=== PATIENT | male | born 1985 | race Two or more races ===

== ENCOUNTER 2018-07-30 21:48 | Emergency (ER) | payer MEDICARE ==
[~2018-07-30] VITALS: Ht 175.3 cm; Wt 84.5 kg
[~2018-07-30 21:48] MED LIST: AMI25T PO; CYCL-394 PO; HYDR-2514 PO; PROM25TA14 PO
[2018-07-30] MEDS ORDERED: ketorolac trometh. 30mg/ml inj. IV ONE (22:35)
[2018-07-30] MEDS ORDERED: magnesium 2GM in 50ml NS 50 ML IV ONE (22:35)
[2018-07-30] MEDS ORDERED: proCHLORperazine 10 MG/2 ml inj IV ONE (22:35)
[2018-07-30] MEDS ORDERED: normal saline 1000ml 1,000 ML IV ONE (22:35)
[2018-07-30] MEDS ORDERED: acetaminophen 325mg tablet PO ONE (22:35)
[2018-07-30] MEDS ORDERED: diphenhydrAMINE 50 mg/ml inj IV ONE (23:15)
[2018-07-30] MEDS ORDERED: LORazepam 2 mg/ml vial IV ONE (23:15)
[2018-07-31 00:26] VITALS: BP 120/61
== END 2018-07-31 00:29 | disposition home or self-care (01) ==
LOC: ER 21:48
DX: R51 Headache (principal); I10 Essential (primary) hypertension; F12.90 Cannabis use, unspecified, uncomplicated; Z56.0 Unemployment, unspecified; Z79.899 Other long term (current) drug therapy
CPT/HCPCS: 70450; 96365; 96375; 99284; J0780; J1200; J1885; J2060; J3475; J7030

== ENCOUNTER 2019-12-04 10:01 | Emergency (ER) | payer MEDICARE, MEDICAID ==
[~2019-12-04] VITALS: Ht 175.3 cm; Wt 87.7 kg
[2019-12-04 10:35] VITALS: BP 140/97
== END 2019-12-04 10:48 | disposition home or self-care (01) ==
LOC: ER 10:02
DX: I10 Essential (primary) hypertension (principal); R07.89 Other chest pain; F12.90 Cannabis use, unspecified, uncomplicated; Z72.89 Other problems related to lifestyle; Z56.0 Unemployment, unspecified; Z79.899 Other long term (current) drug therapy
CPT/HCPCS: 93005; 99283

== ENCOUNTER 2021-11-17 10:15 | Emergency (ER) | payer MEDICARE, MEDICAID ==
[~2021-11-17] VITALS: Ht 175.3 cm; Wt 81.0 kg
[2021-11-17 11:11] LABS: BASOPHILS # (AUTO) 0.1 X10'3 (0-0.2); EOSINOPHILS # (AUTO) 0.8 X10'3 (0-0.9); EOSINOPHILS % (AUTO) 7.4 % (0-6); HEMATOCRIT 48.2 % (42.0-52.0); HEMOGLOBIN 16.7 g/dl (14.0-17.9); LYMPHOCYTES # (AUTO) 2.1 X10'3 (1.1-4.8); LYMPHOCYTES % (AUTO) 18.7 % (21-51); MEAN CORPUSCULAR HEMOGLOBIN 32.2 PG (27.0-31.0); MEAN CORPUSCULAR HGB CONC 34.7 g/dL (33.0-36.5); MEAN CORPUSCULAR VOLUME 92.9 FL (78-98); MEAN PLATELET VOLUME 8.1 FL (7.4-10.4); MONOCYTES # (AUTO) 0.6 X10'3 (0-0.9); MONOCYTES % (AUTO) 5.5 % (2-12); NEUTROPHILS # (AUTO) 7.7 X10'3 (1.8-7.7); NEUTROPHILS % (AUTO) 67.4 % (42-75); PLATELET COUNT 190 X10'3 (140-440); RED BLOOD COUNT 5.19 X10'6 (4.70-6.10); RED CELL DISTRIBUTION WIDTH 12.9 % (11.5-14.5); WHITE BLOOD COUNT 11.4 X10'3 (4.5-11.0)
[2021-11-17 11:22] LABS: ALANINE AMINOTRANSFERASE 88 U/L (12-78); ALBUMIN 4.9 G/DL (3.4-5.0); ALBUMIN/GLOBULIN RATIO 1.4 (1.1-1.5); ALKALINE PHOSPHATASE 79 IU/L (46-116); ANION GAP 12 (8-16); ASPARTATE AMINO TRANSFERASE 51 U/L (10-37); BILIRUBIN,TOTAL 0.7 MG/DL (0.1-1.0); BLOOD UREA NITROGEN 26 MG/DL (7-18); BUN/CREATININE RATIO 20.5 (5.4-32.0); CALCIUM 9.8 MG/DL (8.5-10.1); CHLORIDE 101 MMOL/L (99-107); CREATININE 1.27 MG/DL (0.60-1.10); GLUCOSE 110 MG/DL (70-104); LIPASE 213 U/L (73-393); SODIUM 142 MMOL/L (135-145); TOTAL CARBON DIOXIDE 29.4 MMOL/L (24-32); TOTAL PROTEIN 8.4 G/DL (6.4-8.2); eGFR 64 ML/MIN
[2021-11-17] MEDS ORDERED: diazepam inj 5 MG/ML inj. IV ONE ×2 (12:10→12:50)
[2021-11-17] MEDS ORDERED: pantoprazole 40 MG vial IV ONE (12:10)
[2021-11-17] MEDS ORDERED: normal saline 1000ML IV soln IVB ONE (12:10)
[2021-11-17] MEDS ORDERED: ondansetron/PF 4mg/2ml inj IV ONE ×2 (12:10→16:10)
[2021-11-17] MEDS ORDERED: pantoprazole 40 MG/NS 100ML add-vantage BAG IV ONE (12:15)
[2021-11-17] MEDS ORDERED: proCHLORperazine 10 MG/2 ml inj IV ONE (12:50)
[2021-11-17] MEDS ORDERED: morphine 4 MG/ML inj SYRINge IV ONE ×2 (12:50→16:10)
--- NOTE | 2021-11-17 14:42 | NUR ---
NOTIFIED JAGRUTI MERRILL THAT PT STARTED VOMITING AGAIN.
[2021-11-17] MEDS ORDERED: diphenhydrAMINE 50 mg/ml inj IV ONE (14:45)
[2021-11-17] MEDS: metoclopramide 5 mg/ml inj IV ONE ×2 (15:07→15:11)
[2021-11-17] MEDS ORDERED: METO10TA3 PO (15:26)
[2021-11-17] MEDS ORDERED: ONDA4TAB12 PO (15:26)
[2021-11-17] MEDS ORDERED: HYDR-3972 PO (15:26)
[2021-11-17 17:09] VITALS: BP 154/91
== END 2021-11-17 18:44 | disposition home or self-care (01) ==
LOC: ER 10:15
DX: R11.2 Nausea with vomiting, unspecified (principal); K86.1 Other chronic pancreatitis; I10 Essential (primary) hypertension; F12.90 Cannabis use, unspecified, uncomplicated; Z56.0 Unemployment, unspecified
CPT/HCPCS: 36415; 71045; 80053; 80320; 83690; 85025; 96361; 96374; 96375; 96376; 99285; C9113; J0780; J1200; J2270; J2405; J2765; J3360; J7030

== ENCOUNTER 2021-11-21 20:48 | Emergency (ER) | payer MEDICARE, MEDICAID ==
[~2021-11-21] VITALS: Ht 175.3 cm; Wt 78.9 kg
[~2021-11-21 20:48] MED LIST changes: +HYDR-3972 PO; +METO10TA3 PO; +ONDA4TAB12 PO
[2021-11-21 20:53] VITALS: BP 200/122
== END 2021-11-21 23:07 | disposition left against medical advice (07) ==
LOC: ER 20:49
DX: R10.10 Upper abdominal pain, unspecified (principal); R11.10 Vomiting, unspecified; Z53.21 Procedure and treatment not carried out due to patient leaving prior to being seen by health care provider

== ENCOUNTER 2022-02-19 16:55 | Emergency (ER) | payer MEDICARE, MEDICAID ==
[~2022-02-19] VITALS: Ht 175.3 cm; Wt 81.8 kg
[~2022-02-19 16:55] MED LIST changes: -HYDR-3972 PO; -METO10TA3 PO
[2022-02-19] MEDS ORDERED: normal saline 1000ML IV soln IV ONE (17:20)
[2022-02-19] MEDS ORDERED: ondansetron/PF 4mg/2ml inj IV ONE (17:20)
[2022-02-19] MEDS: morphine 4 MG/ML inj SYRINge IV PRN ×2 (17:58→18:50)
[2022-02-19] MEDS ORDERED: ketorolac trometh. 30mg/ml inj. IV ONE (18:50)
[2022-02-19] MEDS ORDERED: metoclopramide 5 mg/ml inj IV ONE (18:50)
[2022-02-19] MEDS ORDERED: famotidine/PF 10 mg/ml inj IV ONE (18:50)
[2022-02-19] MEDS ORDERED: oxyCODONE/APAP 5-325mg tablet PO ONE (18:55)
[2022-02-19] MEDS ORDERED: ONDA4TAB12 PO (19:47)
[2022-02-19] MEDS ORDERED: OXYC-145 PO (19:47)
--- NOTE | 2022-02-19 20:07 | NUR ---
pt retching at this time after attempting to discharge and given oral pain meds, provider aware, pending further medication orders.
[2022-02-19] MEDS ORDERED: LORazepam 2 mg/ml vial IV ONE (20:10)
[2022-02-19] MEDS ORDERED: haloperidol lactate 5mg/ml inj IM ONE (20:10)
[2022-02-19 21:11] VITALS: BP 159/101
== END 2022-02-19 21:13 | disposition home or self-care (01) ==
LOC: ER 16:56
DX: K86.1 Other chronic pancreatitis (principal); R10.9 Unspecified abdominal pain; I10 Essential (primary) hypertension; F12.90 Cannabis use, unspecified, uncomplicated; Z56.0 Unemployment, unspecified
CPT/HCPCS: 36415; 74176; 83605; 84145; 87040; 96361; 96372; 96374; 96375; 96376; 99284; J1630; J1885; J2060; J2270; J2405; J2765; J3490; J7030

== ENCOUNTER 2022-02-21 08:33 | Emergency (ER) | payer MEDICARE, MEDICAID ==
[~2022-02-21] VITALS: Ht 175.3 cm; Wt 80.0 kg
[~2022-02-21 08:33] MED LIST changes: +OXYC-145 PO
--- NOTE | 2022-02-21 08:56 | NUR ---
lizbeth ragland saw pt in triage. moved to bed 17 until room in main er.
[2022-02-21] MEDS ORDERED: normal saline 1000ml 1,000 ML IV ONE ×2 (09:10→10:10)
[2022-02-21] MEDS ORDERED: ondansetron/PF 4mg/2ml inj IV ONE (09:10)
[2022-02-21] MEDS ORDERED: morphine 4 MG/ML inj SYRINge IV ONE (09:10)
[2022-02-21] MEDS ORDERED: haloperidol lactate 5mg/ml inj IM ONE (09:15)
[2022-02-21] MEDS ORDERED: diphenhydrAMINE 50 mg/ml inj IV ONE (09:15)
[2022-02-21] MEDS ORDERED: LORazepam 2 mg/ml vial IV ONE (09:15)
[2022-02-21 09:23] LABS: BASOPHILS # (AUTO) 0.1 X10'3 (0-0.2); BASOPHILS % (AUTO) 0.5 % (0-1); EOSINOPHILS # (AUTO) 0.5 X10'3 (0-0.9); EOSINOPHILS % (AUTO) 4.2 % (0-6); LYMPHOCYTES # (AUTO) 2.1 X10'3 (1.1-4.8); LYMPHOCYTES % (AUTO) 16.3 % (21-51); MEAN CORPUSCULAR HEMOGLOBIN 32.4 PG (27.0-31.0); MEAN CORPUSCULAR HGB CONC 34.1 g/dL (33.0-36.5); MEAN CORPUSCULAR VOLUME 94.9 FL (78-98); MEAN PLATELET VOLUME 7.9 FL (7.4-10.4); MONOCYTES # (AUTO) 0.6 X10'3 (0-0.9); MONOCYTES % (AUTO) 4.8 % (2-12); NEUTROPHILS # (AUTO) 9.7 X10'3 (1.8-7.7); NEUTROPHILS % (AUTO) 74.2 % (42-75); PLATELET COUNT 257 X10'3 (140-440); RED BLOOD COUNT 4.96 X10'6 (4.70-6.10); RED CELL DISTRIBUTION WIDTH 12.6 % (11.5-14.5)
[2022-02-21 09:40] LABS: ALANINE AMINOTRANSFERASE 92 U/L (12-78); ALBUMIN 4.4 G/DL (3.4-5.0); ALBUMIN/GLOBULIN RATIO 1.3 (1.1-1.5); ALKALINE PHOSPHATASE 72 IU/L (46-116); AMYLASE 97 U/L (25-115); ANION GAP 11 (8-16); ASPARTATE AMINO TRANSFERASE 53 U/L (10-37); BLOOD UREA NITROGEN 19 MG/DL (7-18); BUN/CREATININE RATIO 13.4 (5.4-32.0); CALCIUM 9.6 MG/DL (8.5-10.1); CHLORIDE 102 MMOL/L (99-107); CREATININE 1.42 MG/DL (0.60-1.10); GLUCOSE 143 MG/DL (70-104); LIPASE 201 U/L (73-393); SODIUM 143 MMOL/L (135-145); TOTAL CARBON DIOXIDE 29.9 MMOL/L (24-32); TOTAL PROTEIN 7.9 G/DL (6.4-8.2); eGFR 56 ML/MIN
[2022-02-21] MEDS ORDERED: OXYC-150 PO (10:06)
[2022-02-21] MEDS ORDERED: PROC-8 PO (10:06)
[2022-02-21 10:21] VITALS: BP 162/105
== END 2022-02-21 11:14 | disposition home or self-care (01) ==
LOC: ER 08:35
DX: K86.1 Other chronic pancreatitis (principal); I10 Essential (primary) hypertension; F12.10 Cannabis abuse, uncomplicated; Z56.0 Unemployment, unspecified; Z79.899 Other long term (current) drug therapy; Z79.1 Long term (current) use of non-steroidal anti-inflammatories (NSAID); Z79.2 Long term (current) use of antibiotics
CPT/HCPCS: 36415; 80053; 82150; 83690; 85025; 96361; 96372; 96374; 96375; 99284; J1200; J1630; J2060; J2270; J2405; J7030

== ENCOUNTER 2022-05-01 17:42 | Emergency (ER) | payer MEDICARE, MEDICAID ==
[~2022-05-01] VITALS: Ht 170.2 cm; Wt 77.3 kg
[~2022-05-01 17:42] MED LIST changes: -AMI25T PO; -CYCL-394 PO; -HYDR-2514 PO; +HYDR12.55 PO; +LIPA1CAP18 PO; +LISI10TA27 PO; +ONDA-104 PO; -ONDA4TAB12 PO; -OXYC-145 PO; +OXYC1TAB17 PO; +PANT-47 PO; -PROM25TA14 PO
[2022-05-01] MEDS ORDERED: normal saline 1000ML IV soln IVB ONE (17:45)
[2022-05-01] MEDS ORDERED: LORazepam 2 mg/ml vial IV ONE (17:45)
[2022-05-01] MEDS ORDERED: diphenhydrAMINE 50 mg/ml inj IV ONE (17:45)
[2022-05-01] MEDS ORDERED: haloperidol lactate 5mg/ml inj IM ONE (17:45)
[2022-05-01 18:17] LABS: BASOPHILS # (AUTO) 0.1 X10'3 (0-0.2); BASOPHILS % (AUTO) 1.1 % (0-1); EOSINOPHILS # (AUTO) 0.2 X10'3 (0-0.9); EOSINOPHILS % (AUTO) 1.5 % (0-6); HEMATOCRIT 47.7 % (42.0-52.0); HEMOGLOBIN 16.8 g/dl (14.0-17.9); LYMPHOCYTES # (AUTO) 1.7 X10'3 (1.1-4.8); LYMPHOCYTES % (AUTO) 15.2 % (21-51); MEAN CORPUSCULAR HEMOGLOBIN 32.6 PG (27.0-31.0); MEAN CORPUSCULAR HGB CONC 35.3 g/dL (33.0-36.5); MEAN CORPUSCULAR VOLUME 92.4 FL (78-98); MEAN PLATELET VOLUME 7.8 FL (7.4-10.4); MONOCYTES # (AUTO) 0.6 X10'3 (0-0.9); MONOCYTES % (AUTO) 5.4 % (2-12); NEUTROPHILS # (AUTO) 8.8 X10'3 (1.8-7.7); NEUTROPHILS % (AUTO) 76.8 % (42-75); PLATELET COUNT 238 X10'3 (140-440); RED BLOOD COUNT 5.17 X10'6 (4.70-6.10); RED CELL DISTRIBUTION WIDTH 12.2 % (11.5-14.5); WHITE BLOOD COUNT 11.4 X10'3 (4.5-11.0)
[2022-05-01 18:46] LABS: ALANINE AMINOTRANSFERASE 107 U/L (12-78); ALBUMIN 4.9 G/DL (3.4-5.0); ALBUMIN/GLOBULIN RATIO 1.4 (1.1-1.5); ALKALINE PHOSPHATASE 94 IU/L (46-116); ANION GAP 14 (8-16); ASPARTATE AMINO TRANSFERASE 63 U/L (10-37); BILIRUBIN,TOTAL 0.7 MG/DL (0.1-1.0); BLOOD UREA NITROGEN 22 MG/DL (7-18); BUN/CREATININE RATIO 14.4 (5.4-32.0); CALCIUM 10.5 MG/DL (8.5-10.1); CHLORIDE 99 MMOL/L (99-107); CREATININE 1.53 MG/DL (0.60-1.10); GLUCOSE 143 MG/DL (70-104); LIPASE 139 U/L (73-393); POTASSIUM 3.3 MMOL/L (3.5-5.1); SODIUM 141 MMOL/L (135-145); TOTAL CARBON DIOXIDE 27.8 MMOL/L (24-32); TOTAL PROTEIN 8.4 G/DL (6.4-8.2); eGFR 51 ML/MIN
[2022-05-01 20:10] VITALS: BP 179/87
== END 2022-05-01 20:12 | disposition home or self-care (01) ==
LOC: ER 17:42
DX: R11.15 Cyclical vomiting syndrome unrelated to migraine (principal); I10 Essential (primary) hypertension; F12.90 Cannabis use, unspecified, uncomplicated; Z56.0 Unemployment, unspecified
CPT/HCPCS: 36415; 80053; 83690; 85025; 96361; 96372; 96374; 96375; 99284; J1200; J1630; J2060; J7030

== ENCOUNTER 2022-05-08 09:11 | Emergency (ER) | payer MEDICARE, MEDICAID ==
[~2022-05-08] VITALS: Ht 175.3 cm; Wt 84.1 kg
[2022-05-08 09:30] LABS: BASOPHILS # (AUTO) 0.1 X10'3 (0-0.2); BASOPHILS % (AUTO) 0.6 % (0-1); EOSINOPHILS # (AUTO) 0.4 X10'3 (0-0.9); EOSINOPHILS % (AUTO) 3.5 % (0-6); HEMATOCRIT 51.6 % (42.0-52.0); HEMOGLOBIN 17.8 g/dl (14.0-17.9); LYMPHOCYTES % (AUTO) 15.3 % (21-51); MEAN CORPUSCULAR HEMOGLOBIN 32.1 PG (27.0-31.0); MEAN CORPUSCULAR HGB CONC 34.5 g/dL (33.0-36.5); MEAN PLATELET VOLUME 7.9 FL (7.4-10.4); MONOCYTES # (AUTO) 0.6 X10'3 (0-0.9); MONOCYTES % (AUTO) 4.6 % (2-12); NEUTROPHILS # (AUTO) 9.8 X10'3 (1.8-7.7); PLATELET COUNT 234 X10'3 (140-440); RED BLOOD COUNT 5.55 X10'6 (4.70-6.10); RED CELL DISTRIBUTION WIDTH 12.4 % (11.5-14.5); WHITE BLOOD COUNT 12.8 X10'3 (4.5-11.0)
[2022-05-08] MEDS ORDERED: ondansetron/PF 4mg/2ml inj IV ONE ×2 (09:40→11:55)
[2022-05-08 09:49] LABS: ASPARTATE AMINO TRANSFERASE 28 U/L (10-37); BLOOD UREA NITROGEN 27 MG/DL (7-18); BUN/CREATININE RATIO 18.4 (5.4-32.0); CHLORIDE 103 MMOL/L (99-107); CREATININE 1.47 MG/DL (0.60-1.10); GLUCOSE 160 MG/DL (70-104); POTASSIUM 3.7 MMOL/L (3.5-5.1); SODIUM 142 MMOL/L (135-145); eGFR 54 ML/MIN
[2022-05-08 10:00] LABS: ALANINE AMINOTRANSFERASE 110 U/L (12-78); ALBUMIN/GLOBULIN RATIO 1.4 (1.1-1.5); ALKALINE PHOSPHATASE 107 IU/L (46-116); ANION GAP 15 (8-16); BILIRUBIN,TOTAL 0.7 MG/DL (0.1-1.0); CALCIUM 10.7 MG/DL (8.5-10.1); LIPASE 148 U/L (73-393); TOTAL CARBON DIOXIDE 23.8 MMOL/L (24-32); TOTAL PROTEIN 8.7 G/DL (6.4-8.2)
[2022-05-08] MEDS ORDERED: normal saline 1000ML IV soln IV ONE (10:25)
[2022-05-08] MEDS ORDERED: famotidine/PF 10 mg/ml inj IV ONE (10:25)
[2022-05-08] MEDS ORDERED: LORazepam 2 mg/ml vial IV ONE (10:25)
[2022-05-08] MEDS: haloperidol lactate 5mg/ml inj IM ONE ×2 (10:31→10:42)
[2022-05-08 11:36] LABS: CREATINE KINASE 292 U/L (39-308)
[2022-05-08] MEDS ORDERED: cloNIDine 0.1 mg tablet PO ONE (11:55)
[2022-05-08] MEDS ORDERED: PROC25SU31 RC (11:57)
[2022-05-08] MEDS ORDERED: ONDA4TAB12 PO (11:57)
[2022-05-08 13:28] VITALS: BP 184/101
== END 2022-05-08 13:19 | disposition home or self-care (01) ==
LOC: ER 09:12
DX: R11.15 Cyclical vomiting syndrome unrelated to migraine (principal); K86.1 Other chronic pancreatitis; I10 Essential (primary) hypertension; F12.10 Cannabis abuse, uncomplicated; Z56.0 Unemployment, unspecified; Z79.899 Other long term (current) drug therapy; Z79.1 Long term (current) use of non-steroidal anti-inflammatories (NSAID)
CPT/HCPCS: 36415; 80053; 82550; 83605; 83690; 85025; 93005; 96361; 96372; 96374; 96375; 96376; 99285; J1630; J2060; J2405; J3490; J7030

== ENCOUNTER 2022-06-20 21:10 | Emergency (ER) | payer MEDICARE, MEDICAID ==
[~2022-06-20] VITALS: Ht 175.3 cm; Wt 90.0 kg
[~2022-06-20 21:10] MED LIST changes: +ONDA4TAB12 PO
[2022-06-20 21:24] VITALS: BP 179/124
[2022-06-20 21:58] LABS: ALANINE AMINOTRANSFERASE 173 U/L (12-78); ALBUMIN 5.6 G/DL (3.4-5.0); ALBUMIN/GLOBULIN RATIO 1.3 (1.1-1.5); ALKALINE PHOSPHATASE 125 IU/L (46-116); ASPARTATE AMINO TRANSFERASE 32 U/L (10-37); BLOOD UREA NITROGEN 34 MG/DL (7-18); BUN/CREATININE RATIO 13.7 (10.0-20.0); CALCIUM 11.6 MG/DL (8.5-10.1); CREATININE 2.49 MG/DL (0.60-1.10); GLUCOSE 176 MG/DL (70-104); LIPASE 88 U/L (73-393); eGFR 29 ML/MIN
[2022-06-20 21:59] LABS: ANION GAP 17 (8-16); BILIRUBIN,TOTAL 1.3 MG/DL (0.1-1.0); CHLORIDE 97 MMOL/L (99-107); POTASSIUM 4.4 MMOL/L (3.5-5.1); SODIUM 139 MMOL/L (135-145); TOTAL CARBON DIOXIDE 24.7 MMOL/L (24-32)
[2022-06-20 22:36] LABS: BASOPHILS % (AUTO) 0.3 % (0-1); EOSINOPHILS % (AUTO) 0 % (0-6); HEMATOCRIT 56.2 % (42.0-52.0); LYMPHOCYTES % (AUTO) 6.9 % (21-51); MEAN CORPUSCULAR HEMOGLOBIN 32.4 PG (27.0-31.0); MEAN CORPUSCULAR HGB CONC 34.9 g/dL (33.0-36.5); MONOCYTES # (AUTO) 0.5 X10'3 (0-0.9); MONOCYTES % (AUTO) 3.7 % (2-12); NEUTROPHILS % (AUTO) 89.1 % (42-75); RED BLOOD COUNT 6.05 X10'6 (4.70-6.10); RED CELL DISTRIBUTION WIDTH 12.5 % (11.5-14.5); WHITE BLOOD COUNT 14.6 X10'3 (4.5-11.0)
[2022-06-20 23:32] LABS: TOTAL CELLS COUNTED 100
[2022-06-20 23:33] LABS: GIANT PLATELET FEW; LARGE PLATELETS FEW; PLATELET ESTIMATE NORMAL; SMUDGE CELLS FEW
[2022-06-21 06:44] LABS: HEMOGLOBIN 19.6 g/dl (14.0-17.9)
== END 2022-06-21 01:01 | disposition left against medical advice (07) ==
LOC: ER 21:10
DX: R10.9 Unspecified abdominal pain (principal); Z53.21 Procedure and treatment not carried out due to patient leaving prior to being seen by health care provider
CPT/HCPCS: 36415; 80053; 83690; 85007; 85025; 99281

== ENCOUNTER 2022-06-23 13:26 | Emergency (ER) | payer MEDICARE, MEDICAID ==
[~2022-06-23] VITALS: Ht 175.3 cm; Wt 80.9 kg
[2022-06-23 13:40] VITALS: BP 178/103
== END 2022-06-23 16:26 | disposition left against medical advice (07) ==
LOC: ER 13:27
DX: R10.9 Unspecified abdominal pain (principal); Z53.21 Procedure and treatment not carried out due to patient leaving prior to being seen by health care provider
CPT/HCPCS: 99281

== ENCOUNTER 2022-06-27 14:00 | Emergency (ER) | payer MEDICARE, MEDICAID ==
[~2022-06-27] VITALS: Ht 175.3 cm; Wt 80.9 kg
[2022-06-27] MEDS ORDERED: morphine 4 MG/ML inj SYRINge IV ONE (14:20)
[2022-06-27] MEDS ORDERED: ondansetron/PF 4mg/2ml inj IV ONE (14:20)
[2022-06-27] MEDS ORDERED: LORazepam 2 mg/ml vial IV ONE (14:20)
[2022-06-27] MEDS ORDERED: ringers solution, lacted 1,000 ML IV ONE ×2 (14:20)
[2022-06-27] MEDS ORDERED: diphenhydrAMINE 50 mg/ml inj IV ONE (14:40)
[2022-06-27] MEDS: haloperidol lactate 5mg/ml inj IM ONE ×2 (14:43→14:48)
[2022-06-27 15:12] LABS: BASOPHILS % (AUTO) 0.5 % (0-1); EOSINOPHILS % (AUTO) 0.4 % (0-6); HEMATOCRIT 45.8 % (42.0-52.0); HEMOGLOBIN 15.9 g/dl (14.0-17.9); LYMPHOCYTES # (AUTO) 0.7 X10'3 (1.1-4.8); LYMPHOCYTES % (AUTO) 8.4 % (21-51); MEAN CORPUSCULAR HEMOGLOBIN 32.6 PG (27.0-31.0); MEAN CORPUSCULAR HGB CONC 34.8 g/dL (33.0-36.5); MEAN CORPUSCULAR VOLUME 93.8 FL (78-98); MEAN PLATELET VOLUME 7.8 FL (7.4-10.4); MONOCYTES # (AUTO) 0.2 X10'3 (0-0.9); MONOCYTES % (AUTO) 2.2 % (2-12); NEUTROPHILS # (AUTO) 7.1 X10'3 (1.8-7.7); NEUTROPHILS % (AUTO) 88.5 % (42-75); PLATELET COUNT 198 X10'3 (140-440); RED BLOOD COUNT 4.88 X10'6 (4.70-6.10); RED CELL DISTRIBUTION WIDTH 12.2 % (11.5-14.5)
[2022-06-27 15:31] LABS: ALANINE AMINOTRANSFERASE 79 U/L (12-78); ALBUMIN 4.2 G/DL (3.4-5.0); ALBUMIN/GLOBULIN RATIO 1.3 (1.1-1.5); ALKALINE PHOSPHATASE 86 IU/L (46-116); ANION GAP 12 (8-16); ASPARTATE AMINO TRANSFERASE 30 U/L (10-37); BILIRUBIN,TOTAL 0.9 MG/DL (0.1-1.0); BLOOD UREA NITROGEN 14 MG/DL (7-18); BUN/CREATININE RATIO 11.4 (10.0-20.0); CALCIUM 9.3 MG/DL (8.5-10.1); CHLORIDE 103 MMOL/L (99-107); CREATININE 1.23 MG/DL (0.60-1.10); GLUCOSE 129 MG/DL (70-104); LIPASE 70 U/L (73-393); POTASSIUM 3.1 MMOL/L (3.5-5.1); SODIUM 142 MMOL/L (135-145); TOTAL CARBON DIOXIDE 27.2 MMOL/L (24-32); TOTAL PROTEIN 7.4 G/DL (6.4-8.2); eGFR 66 ML/MIN
[2022-06-27] MEDS ORDERED: iohexol 300mg/ml 100ml inj. ONE (15:34)
[2022-06-27] MEDS ORDERED: potassium Cl 20 mEq SR tablet PO ONE (15:55)
[2022-06-27 18:05] VITALS: BP 114/72
== END 2022-06-27 18:07 | disposition home or self-care (01) ==
LOC: ER 14:01
DX: R11.2 Nausea with vomiting, unspecified (principal); E87.6 Hypokalemia; E86.0 Dehydration; I10 Essential (primary) hypertension; F12.10 Cannabis abuse, uncomplicated; Z79.899 Other long term (current) drug therapy; Z79.1 Long term (current) use of non-steroidal anti-inflammatories (NSAID); Z79.2 Long term (current) use of antibiotics
CPT/HCPCS: 36415; 74177; 80053; 83690; 85025; 93005; 96361; 96372; 96374; 96375; 99285; J1200; J1630; J2060; J2270; J2405; J3490; J7120; Q9967